=== PATIENT | male | born 1990 | race Caucasian/White ===

== ENCOUNTER 2017-11-01 11:08 | Emergency (ER) | payer MEDICAID ==
--- NOTE | 2017-11-01 12:25 | EDPHY ---
H & P Stated Complaint: WORKING OUT THURSDAY/SQUATS AT GYM PAIN R INGUINAL AREA Time Seen by Provider: 11/01/17 12:24 - Personal History Current Tetanus/Diphtheria Vaccine: Yes - Medical/Surgical History Hx Asthma: No Hx Chronic Respiratory Disease: No Hx Diabetes: No Hx Cardiac Disease: No Hx Renal Disease: No Hx Cirrhosis: No Hx Alcoholism: No Hx HIV/AIDS: No Hx Splenectomy or Spleen Trauma: No Other PMH: CHRONIC PAIN POST INJ THORACIC AREA - Social History Smoking Status: Never smoked Constitutional: Initial Vital Signs Temperature (C) 36.8 C 11/01/17 11:15 Heart Rate 95 11/01/17 11:15 Respiratory Rate 16 11/01/17 11:15 Blood Pressure 107/58 L 11/01/17 11:15 O2 Sat (%) 96 11/01/17 11:15 O2 Delivery Mode Room Air Allergies/Adverse Reactions: codeine Allergy (Verified 11/01/17 11:11) Home Medications: Medication Instructions Recorded Hydrocodone/APAP 5/325 [Hope 1 - 2 each PO Q4-6PRN PRN #20 tab 11/01/17 5/325] Medical Decision Making - Diagnostics Imaging Results: Imaging Impressions Abdomen CT 11/01/17 12:50 Impression: Normal. No abdominal wall hernia, free fluid, or localized intra- abdominal inflammatory process. Findings discussed with Emergency Department physician, Kenji Turk MD at 11/01/2017 13:57. Imaging: Discussed imaging studies w/ bingo caller Radiologist, I viewed and interpreted images myself ED Course/Re-evaluation: CHIEF COMPLAINT: "I've got pain in the groin. I think I have a hernia" HISTORY OF PRESENT ILLNESS: The patient is a 27 y/o male complaining of right groin pain onset after working out at the gym on Thursday, 5 days ago. He describes doing abdominal exercises and going down into a squat "ass to grass" and felt "my gut kenny move" and then developed significant lower abdominal pain and groin pain. Pain has been waxing and waning since this event and he thinks he may have a hernia in the location. He denies associated vomiting, diarrhea, fever, urinary issues. His pain is aggravated by yoga, bending, sitting down, and lying down and sometimes extends into his right testicle. He is normally healthy. REVIEW OF SYSTEMS: A 10 point review of systems was performed and is negative with the exception of the elements mentioned in the history of present illness. PHYSICAL EXAM: HR, BP, O2 Sat, RR. Temp noted General Appearance: Alert, well hydrated, appropriate, and non-toxic appearing. Head: Atraumatic without scalp tenderness or obvious injury Eyes: Pupils equal, round, reactive to light and accommodation, EOMI, no trauma , no injection. Ears: Clear bilaterally, no perforation, normal landmarks Nose: Atraumatic, no rhinorrhea, clear. Throat: Mucus membranes moist. Neck: Supple Respiratory: No retractions, no distress, no wheezes, and no accessory muscle use. Lungs are clear to auscultation bilaterally. Cardiovascular: Regular rate and rhythm, no murmurs, rubs, or gallops. Good capillary refill all extremities. Gastrointestinal: Abdomen is soft, diffuse lower abdominal tenderness, non- distended, no masses, no rebound, no guarding, no peritoneal signs. : Normal external male genitalia. Musculoskeletal: Normal active ROM of all extremities, atraumatic. Neurological: Alert, appropriate, and interactive. The patient has non-focal cranial nerves, motor, sensory, and cerebellar exam. Skin: No rashes, good turgor, no nodules on palpation. Past medical history: Denies Past surgical history: Denies Family history: Noncontributory Social history: Lives in [place]. Employed. DIAGNOSTICS/PROCEDURES/CRITICAL CARE TIME: Abdominal CT: negative DIFFERENTIAL DIAGNOSIS: The differential diagnosis for the patient's abdominal pain included but was not limited to appendicitis, cholecystitis, hernias, testicular torsion, gastritis, and urinary tract infection. MEDICAL DECISION MAKING: This is a normally healthy 27 y/o male who presents with a 5-day history of intermittent lower abdominal pain after a heavy abdominal and leg work out on Thursday. He has diffuse lower abdominal tenderness. No obvious hernia on exam. Plan for ISTAT and abdominal CT. CT is negative. Reevaluated patient and discussed findings. Presentation seems consistent with musculoskeletal pain related to patient's recent gym work out. He will be discharged home in good condition with standard care instructions, script for Hope, and return precautions. He is comfortable with this plan. - Data Points Laboratory Results: 11/01/17 13:17 POC Hgb 16.0 gm/dL gm/dL (13.7-17.5) POC Hct 47 % % (40-51) POC Sodium 142 mEq/L mEq/L (135-145) POC Potassium 4.1 mEq/L mEq/L (3.3-5.0) POC Chloride 100 mEq/L mEq/L (97-110) POC BUN 11 mg/dL mg/dL (7-23) POC Creatinine 0.9 mg/dL mg/dL (0.7-1.3) POC Glucose 100 mg/dL mg/dL (70-100) Point of Care Test Results: 11/01/17 13:17 POC Sodium 142 POC Potassium 4.1 POC Chloride 100 POC BUN 11 POC Creatinine 0.9 POC Glucose 100 Departure - Departure Disposition: Home, Routine, Self-Care Clinical Impression: Musculoskeletal pain Abdominal pain Qualifiers: Abdominal location: lower abdomen, unspecified Qualified Code(s): R10.30 - Lower abdominal pain, unspecified Condition: Good Instructions: Abdominal Pain (ED), Musculoskeletal Pain (ED) Additional Instructions: 1. Take 600mg ibuprofen every 6-8 hours as needed for pain and inflammation over the next few days. 2. Use Hope as prescribed as needed for severe pain. This medication can make you drowsy and constipated. Do not drive while using this. 3. Follow up with your primary care provider for unimproved symptoms over the next few days. 4. Return to the ED for worsening of condition. Referrals: Christina Nelson PA [Primary Care Provider] - As per Instructions Prescriptions: Hydrocodone/APAP 5/325 [Hope 5/325] 1 - 2 each PO Q4-6PRN PRN #20 tab PRN Reason: Pain, Moderate Report Scribed for: Kenji Turk Report Scribed by: Rita Mejía Date of Report: 11/01/17 Time of Report: 12:51
[2017-11-01] MEDS ORDERED: IOPAMIDOL (ISOVUE-300) 100 ML BTL ONE (13:48)
[2017-11-01 14:37] VITALS: BP 140/81
== END 2017-11-01 14:24 | disposition home or self-care (01) ==
DX: R10.30 Lower abdominal pain, unspecified (principal); M79.1 Myalgia
CPT/HCPCS: 82947-QW; Q9967